=== PATIENT | male | born 2000 | race Native Hawaiian/Other Pacific Islander ===

== ENCOUNTER 2022-04-29 12:10 | Emergency (ER) | payer OTHER ==
[~2022-04-29] VITALS: Ht 172.7 cm; Wt 93.0 kg
[2022-04-29 12:18] VITALS: TEMP 98
[2022-04-29 13:14] LABS: PLATELET COUNT 230 K/uL (142-355)
[2022-04-29 13:23] LABS: POTASSIUM 4.5 mmol/L (3.6-5.2)
[2022-04-29 17:13] VITALS: BP 126/82
== END 2022-04-29 17:13 | disposition home or self-care (01) ==
LOC: ED 12:10
PROVIDERS: Emergency Medicine
DX: F33.9 Major depressive disorder, recurrent, unspecified (principal); S60.812A Abrasion of left wrist, initial encounter; Z20.822 Contact with and (suspected) exposure to COVID-19; X58.XXXA Exposure to other specified factors, initial encounter; Y92.89 Other specified places as the place of occurrence of the external cause
CPT/HCPCS: 80053; 80143; 80179; 80307; 80320; 85027; 87635; 93005; 99285; U0003